=== PATIENT | female | born 1960 | race Caucasian/White ===

== ENCOUNTER → 2016-08-12 | Outpatient (REF) | payer BC | LOC: M LAB REF 16:55 | PROVIDERS: ATTEND Advanced Practice Midwife | DX: Z12.4 Encounter for screening for malignant neoplasm of cervix (principal) ==

== ENCOUNTER → 2016-08-15 | Outpatient (CLI) | payer BC ==
--- NOTE | 2016-08-15 09:21 | REPMRS ---
Patient History The patient states she had a clinical breast exam in July 2016. Patient is postmenopausal. Family history of unknown cancer in father at age 63 and unknown cancer in mother at age 80. Benign excisional biopsy of the left breast. Benign excisional biopsy of the right breast. Digital Mammo Screening Bilat: August 15, 2016 - Exam #: [id number] Bilateral CC and MLO view(s) were taken. Technologist: Christina Aquino, Technologist Prior study comparison: November 05, 2013, digital mammo diagnostic bilateral performed at [facility]. February 12, 2012, digital woman screen mammo, performed at [facility]. January 25, 2011, bilateral bilat screen digital mammo, performed at [facility]. FINDINGS: The breast tissue is heterogeneously dense. This may lower the sensitivity of mammography. There is a moderate amount of heterogeneously dense fibroglandular tissue which is fairly symmetric. There is no interval development of dominant mass, architectural distortion, or clustered microcalcification typical of malignancy. There has been no change in the appearance of the mammogram from the prior studies. ASSESSMENT: BI-RADS/ACR category 1 mammogram. Negative. Recommendation Routine screening mammogram of both breasts in 1 year (for women over age 40). This mammogram was interpreted with the aid of an FDA-approved computer-aided dectection system. Electronically Signed By: Vic Pardo MD 08/15/16 0921
== END ==
LOC: M RAD 08:53
PROVIDERS: ATTEND Advanced Practice Midwife
DX: Z12.31 Encounter for screening mammogram for malignant neoplasm of breast (principal); Z78.0 Asymptomatic menopausal state

== ENCOUNTER → 2018-04-20 | Outpatient (CLI) | payer BC | LOC: M WHC 08:25 | DX: Z12.31 Encounter for screening mammogram for malignant neoplasm of breast (principal); M81.0 Age-related osteoporosis without current pathological fracture; Z78.0 Asymptomatic menopausal state | CPT/HCPCS: 77067 ==

== ENCOUNTER → 2020-05-20 | Outpatient (CLI) | payer BC ==
[~2020-05-20] MED LIST: D32000CA PO; ECOT81TA5 PO; FLUTISP; IBUP200C25 PO; MIRA3350 PO; SYMB80INH; VENTAER
== END ==
LOC: M LABSMTC 09:41
PROVIDERS: ATTEND Anesthesiology
DX: Z01.812 Encounter for preprocedural laboratory examination (principal); Z20.828 Contact with and (suspected) exposure to other viral communicable diseases
CPT/HCPCS: C9803; U0003

== ENCOUNTER 2020-05-25 09:41 | Day surgery (SDC) | payer BC ==
[~2020-05-25] VITALS: Ht 167.6 cm; Wt 56.2 kg
[~2020-05-25 09:41] MED LIST changes: +NS 1,000 ML IV ONE
[2020-05-25] MEDS ORDERED: LIDOCAINE 2% 100MG/5ML SDV (FOR ANES.) As Ordered ONE (11:17)
[2020-05-25] MEDS ORDERED: propofoL 200 MG/20 ML VIAL As Ordered ONE (11:17)
--- NOTE | 2020-05-25 11:40 | ROOR ---
Patient Name: Grace Ferreira Procedure Date: 05/25/2020 11:14 AM Date of : 1960 Age: 59 Room: [facility] Gender: Female Note Status: Finalized Procedure: Colonoscopy Indications: High risk colon cancer surveillance: Personal history of colonic polyps, Family history of advanced adenoma of the colon in a first-degree relative before age 60 years Providers: Pito ROBLES MD Referring MD: MELIDA PICHARDO MD Requesting Provider: Medicines: Monitored Anesthesia Care Complications: No immediate complications. Procedure: Pre-Anesthesia Assessment: - The heart rate, respiratory rate, oxygen saturations, blood pressure, adequacy of pulmonary ventilation, and response to care were monitored throughout the procedure. The Colonoscope was introduced through the anus and advanced to the terminal ileum, with identification of the appendiceal orifice and IC valve. The colonoscopy was performed without difficulty. The patient tolerated the procedure well. The quality of the bowel preparation was good. Findings: The perianal and digital rectal examinations were normal. Two sessile polyps were found in the sigmoid colon and ascending colon. The polyps were diminutive in size. These polyps were removed with a cold snare. Resection and retrieval were complete. Mild sigmoid diverticulosis and small internal hemorrhoids. The colon (entire examined portion) was redundant. The exam was otherwise without abnormality on direct and retroflexion views. Impression: - Two diminutive polyps in the sigmoid colon and in the ascending colon, removed with a cold snare. Resected and retrieved. - Mild sigmoid diverticulosis and small internal hemorrhoids. - The colon examination was otherwise normal on direct and retroflexion views. Recommendation: - Repeat colonoscopy in 5 years for surveillance. Pito Robles MD Pito ROBLES MD 05/25/2020 11:39:25 AM Electronically signed by Pito ROBLES MD Number of Addenda: 0 Note Initiated On: 05/25/2020 11:14 AM Estimated Blood Loss: Estimated blood loss: none.
[2020-05-25 12:18] VITALS: BP 142/66
== END 2020-05-25 12:22 | disposition home or self-care (01) ==
LOC: M OPP 09:41
PROVIDERS: ATTEND Internal Medicine Gastroenterology
DX: Z12.11 Encounter for screening for malignant neoplasm of colon (principal); Z86.010 Personal history of colon polyps; Z83.71 Family history of colonic polyps; Z12.2 Encounter for screening for malignant neoplasm of respiratory organs; Q43.8 Other specified congenital malformations of intestine; K64.8 Other hemorrhoids; F17.201 Nicotine dependence, unspecified, in remission; J45.909 Unspecified asthma, uncomplicated; Z79.82 Long term (current) use of aspirin; Z91.040 Latex allergy status

== ENCOUNTER 2023-01-18 19:02 | Inpatient (IN) | payer BC ==
[~2023-01-18] VITALS: Ht 162.6 cm; Wt 54.0 kg
[~2023-01-18 19:02] MED LIST changes: +FLUT50SP17; -FLUTISP; -NS 1,000 ML IV ONE; -SYMB80INH; +SYMB80INH INH; -VENTAER; +VENTAER INH
[2023-01-18] MEDS ORDERED: KETOROLAC 60MG 2ML VIAL IM ONE (19:20)
[2023-01-18] MEDS ORDERED: HYDROMORPHONE HCL 0.5 MG/ 0.5 ML SYRINGE IV ONE (19:55)
[2023-01-18 20:15] LABS: BASO # 0.1 10^3/uL (0.0-0.2); BASO % 0.7 % (0.0-1.0); EOS # 0.2 10^3/uL (0.0-0.5); EOS % 2.9 % (0.0-3.0); HEMATOCRIT 37.3 % (36.0-47.0); HEMOGLOBIN 12.5 g/dl (12.0-15.5); LYMPH # 1.7 10^3/uL (1.5-5.0); LYMPH % 24.2 % (24.0-44.0); MEAN CORPUSCULAR HEMOGLOBIN 31.3 pg (27.0-33.0); MEAN CORPUSCULAR HGB CONC 33.5 g/dl (32.0-36.5); MEAN CORPUSCULAR VOLUME 93.3 fl (80.0-96.0); MONO # 0.5 10^3/uL (0.0-0.8); MONO % 6.5 % (2.0-8.0); NEUTROPHILS # 4.5 10^3/uL (1.5-8.5); NEUTROPHILS % 65.6 % (36.0-66.0); PLATELET COUNT, AUTOMATED 242 10^3/uL (150-450); WHITE BLOOD COUNT 6.9 10^3/uL (4.0-10.0)
[2023-01-18 20:25] LABS: INR 0.92; PROTHROMBIN TIME 12.6 SECONDS (12.5-14.5)
[2023-01-18 20:26] LABS: PARTIAL THROMBOPLASTIN TIME 27.2 SECONDS (24.8-34.2)
[2023-01-18] MEDS ORDERED: HOME MED LIST COMPLETE! XX SCH (20:40)
[2023-01-18 20:42] LABS: BLOOD UREA NITROGEN 17 MG/DL (9-23); CALCIUM LEVEL 8.9 MG/DL (8.3-10.6); CARBON DIOXIDE LEVEL 21 MMOL/L (20-31); CHLORIDE LEVEL 110 MMOL/L (98-107); CREATININE FOR GFR 0.66 MG/DL (0.55-1.30); GLOMERULAR FILTRATION RATE > 60.0 (>45); GLUCOSE, FASTING 100 MG/DL (74-106); POTASSIUM SERUM 4.3 MMOL/L (3.5-5.1); SODIUM LEVEL 142 MMOL/L (136-145)
[2023-01-18 21:02] LABS: RSV AMPLIFICATION NEGATIVE (NEGATIVE)
[2023-01-18] MEDS ORDERED: SODIUM CHLORIDE NASAL 0.65% SPRAY BTL (OCEAN) PRN (21:40)
[2023-01-18] MEDS ORDERED: HYDROMORPHONE HCL 0.5 MG/ 0.5 ML SYRINGE IV PRN (21:40)
[2023-01-18] MEDS ORDERED: ACETAMINOPHEN TAB 650MG DOSE (2X325MG) PO PRN (21:40)
[2023-01-18] MEDS: HYDROMORPHONE HCL 0.5 MG/ 0.5 ML SYRINGE IV PRN (22:02)
[2023-01-18] MEDS: ONDANSETRON 4MG 2ML VIAL IV PRN (22:02)
[2023-01-18 22:19] VITALS: BP_SYST 133; BP_DIAS 70; BP_DIAS 76; TEMP 98.1; O2SAT 97
[2023-01-18] MEDS: ALBUTEROL 90 MCG/ACT 8GM HFA INHALER INH PRN (22:38)
[2023-01-18] MEDS: LR 1,000 ML IV SCH (23:58)
[2023-01-19] MEDS: HYDROMORPHONE HCL 0.5 MG/ 0.5 ML SYRINGE IV PRN ×4 (01:05→09:55)
[2023-01-19 06:00] VITALS: BP 130/67; TEMP 98.2; O2SAT 95
[2023-01-19] MEDS: ALBUTEROL 90 MCG/ACT 8GM HFA INHALER INH PRN (07:18)
[2023-01-19] MEDS: SYMBICORT 80/4.5MCG INHALER 6GM INH SCH ×2 (07:19→20:00)
[2023-01-19] MEDS: DOCUSATE SODIUM 100MG CAPSULE PO SCH ×2 (09:00→21:00)
[2023-01-19] MEDS: ONDANSETRON 4MG 2ML VIAL IV PRN (09:34)
[2023-01-19] MEDS: LR 1,000 ML IV SCH (11:14)
[2023-01-19] MEDS ORDERED: HYDROMORPHONE HCL 0.5 MG/ 0.5 ML SYRINGE IV ONE (11:15)
[2023-01-19] MEDS ORDERED: KETOROLAC 30 MG/ML 1ML VIAL IV ONE (11:15)
[2023-01-19] MEDS ORDERED: PROMETHAZINE 25MG/ML 1ML VIAL IV ONE (11:30)
[2023-01-19 11:59] LABS: BLOOD UREA NITROGEN 13 MG/DL (9-23); CALCIUM LEVEL 9.1 MG/DL (8.3-10.6); CARBON DIOXIDE LEVEL 26 MMOL/L (20-31); CHLORIDE LEVEL 105 MMOL/L (98-107); CREATININE FOR GFR 0.56 MG/DL (0.55-1.30); GLOMERULAR FILTRATION RATE > 60.0 (>45); GLUCOSE, FASTING 135 MG/DL (74-106); POTASSIUM SERUM 4.2 MMOL/L (3.5-5.1); SODIUM LEVEL 137 MMOL/L (136-145)
[2023-01-19] MEDS ORDERED: PANTOPRAZOLE 40MG VIAL IV ONE (12:00)
[2023-01-19] MEDS: NALOXONE INJ 0.4MG/1ML VIAL IV PRN ×2 (12:20→13:03)
[2023-01-19 14:00] VITALS: BP 117/52; TEMP 97.2; O2SAT 98
[2023-01-19] MEDS ORDERED: LIDOCAINE 2% 100MG/5ML SDV (FOR ANES.) As Ordered ONE (15:57)
[2023-01-19] MEDS ORDERED: ROCURONIUM BROMIDE 50MG/5ML VIAL As Ordered ONE (15:57)
[2023-01-19] MEDS ORDERED: fentaNYL 100 MCG/2 ML INJECTION As Ordered ONE (15:58)
[2023-01-19] MEDS ORDERED: MIDAZOLAM INJ 2MG/2ML VIAL As Ordered ONE ×2 (15:58→21:33)
[2023-01-19] MEDS ORDERED: propofoL 200 MG/20 ML VIAL As Ordered ONE (15:58)
[2023-01-19] MEDS: ceFAZolin 1GM VIAL As Ordered ONE ×2 (16:03→21:07)
[2023-01-19] MEDS ORDERED: ceFAZolin 2 GM/D5W 50 ML IV BAG As Ordered ONE (16:28)
[2023-01-19] MEDS ORDERED: TRANEXAMIC ACID 100 MG/ML 10ML VIAL As Ordered ONE ×2 (16:28→19:12)
[2023-01-19] MEDS ORDERED: ONDANSETRON 4MG 2ML VIAL As Ordered ONE (16:37)
[2023-01-19] MEDS ORDERED: ACETAMINOPHEN 1000MG 100ML IV BAG As Ordered ONE (16:56)
[2023-01-19] MEDS ORDERED: HYDROmorphone HCL 2MG/ML 1ML VIAL As Ordered ONE (16:56)
[2023-01-19] MEDS ORDERED: SENOKOT S TAB PO PRN (17:00)
[2023-01-19] MEDS ORDERED: PERCOCET 5MG/325MG TAB PO PRN ×3 (17:00→21:40)
[2023-01-19] MEDS ORDERED: MORPHINE 10 MG/ML 1ML VIAL IV PRN (17:00)
[2023-01-19] MEDS ORDERED: MOM 30ML SUSPENSION UDC PO PRN (17:00)
[2023-01-19] MEDS ORDERED: LR 1,000 ML IV SCH ×3 (18:00→23:00)
[2023-01-19] MEDS: KETOROLAC 30 MG/ML 1ML VIAL IV SCH (18:00)
[2023-01-19] MEDS ORDERED: LABETALOL 100MG/20ML VIAL As Ordered ONE (18:31)
[2023-01-19] MEDS ORDERED: VANCOMYCIN 500MG/10ML VIAL As Ordered ONE (20:19)
[2023-01-19] MEDS ORDERED: CETIRIZINE (ZyrTEC) 10 MG TAB PO SCH (21:00)
[2023-01-19] MEDS ORDERED: LEVALBUTEROL 1.25MG/3ML NEB SOLN INH ONE (21:30)
[2023-01-19] MEDS ORDERED: MIDAZOLAM INJ 2MG/2ML VIAL IV PRN (21:30)
[2023-01-19] MEDS ORDERED: MEPERIDINE 25 MG/ML 1ML VIAL IV PRN (21:40)
[2023-01-19] MEDS ORDERED: METOCLOPRAMIDE INJ 10MG/2ML VIAL IV PRN (21:40)
[2023-01-19] MEDS ORDERED: ONDANSETRON 4MG 2ML VIAL IV PRN (21:40)
[2023-01-19] MEDS ORDERED: fentaNYL 100 MCG/2 ML INJECTION IV PRN (21:40)
[2023-01-19 22:55] VITALS: BP 123/65; TEMP 98.1; O2SAT 96
[2023-01-19 23:25] VITALS: BP 107/50; TEMP 99.3; O2SAT 96
[2023-01-19 23:55] VITALS: BP 100/48; TEMP 98.8; O2SAT 97
[2023-01-20 00:55] VITALS: BP 137/61; TEMP 98.2; O2SAT 94
[2023-01-20 01:55] VITALS: BP 114/54; TEMP 99.5; O2SAT 96
[2023-01-20] MEDS: ONDANSETRON 4MG 2ML VIAL IV PRN (02:48)
[2023-01-20 02:55] VITALS: BP 134/66; TEMP 99; O2SAT 96
[2023-01-20 03:55] VITALS: BP 105/53; TEMP 99.3; O2SAT 96
[2023-01-20] MEDS: KETOROLAC 30 MG/ML 1ML VIAL IV SCH ×3 (06:08→12:00)
[2023-01-20 08:00] VITALS: BP 100/56; TEMP 98.2; O2SAT 97
[2023-01-20] MEDS: SYMBICORT 80/4.5MCG INHALER 6GM INH SCH (08:00)
[2023-01-20] MEDS ORDERED: ASPIRIN 81MG ENTERIC TABLET PO SCH (09:00)
[2023-01-20] MEDS: DOCUSATE SODIUM 100MG CAPSULE PO SCH (09:41)
[2023-01-20 12:00] VITALS: BP 113/57; TEMP 98.6; O2SAT 96
[2023-01-20] MEDS ORDERED: ASPI81TAEC PO (12:17)
[2023-01-20] MEDS ORDERED: CETI10TA PO (12:17)
[2023-01-20] MEDS ORDERED: SENN-52 PO (12:17)
[2023-01-20] MEDS ORDERED: PERC5TAB12 PO (12:17)
== END 2023-01-20 16:13 | disposition home or self-care (01) | DRG 313 ==
LOC: M ED 19:02 → M ED INP 21:36 → M MSPAV 22:19
PROVIDERS: ADMIT Internal Medicine; ATTEND General Practice
PROC: BQ1DZZZ Fluoroscopy of Right Lower Leg (ICD-10-PCS; principal; 2023-01-19 08:30)
PROC: 0QSG06Z Reposition Right Tibia with Intramedullary Internal Fixation Device, Open Approach (ICD-10-PCS; 2023-01-20)
PROC: 0QSJ06Z Reposition Right Fibula with Intramedullary Internal Fixation Device, Open Approach (ICD-10-PCS; 2023-01-20)
DX: S82.301A Unspecified fracture of lower end of right tibia, initial encounter for closed fracture (principal); G92.9 Unspecified toxic encephalopathy; S82.461A Displaced segmental fracture of shaft of right fibula, initial encounter for closed fracture; J45.909 Unspecified asthma, uncomplicated; M81.0 Age-related osteoporosis without current pathological fracture; T40.2X5A Adverse effect of other opioids, initial encounter; R10.13 Epigastric pain; J44.9 Chronic obstructive pulmonary disease, unspecified; Z87.891 Personal history of nicotine dependence; Z79.899 Other long term (current) drug therapy; Z91.010 Allergy to peanuts; Z91.040 Latex allergy status; W01.0XXA Fall on same level from slipping, tripping and stumbling without subsequent striking against object, initial encounter; Y92.9 Unspecified place or not applicable

== ENCOUNTER → 2023-02-05 | Outpatient (CLI) | payer BC ==
[~2023-02-05] MED LIST changes: +ASPI81TAEC PO; +CETI10TA PO; +PERC5TAB12 PO; +SENN-52 PO
== END ==
LOC: M SOG 09:21
PROVIDERS: ATTEND Orthopaedic Surgery
DX: M79.604 Pain in right leg (principal)

== ENCOUNTER → 2023-03-05 | Outpatient (CLI) | payer BC | LOC: M SOG 09:39 | PROVIDERS: ATTEND Orthopaedic Surgery | DX: S82.251D Displaced comminuted fracture of shaft of right tibia, subsequent encounter for closed fracture with routine healing (principal); Y93.9 Activity, unspecified; Y92.9 Unspecified place or not applicable ==

== ENCOUNTER → 2023-04-11 | Outpatient (CLI) | payer BC | LOC: M SOG 07:53 | PROVIDERS: ATTEND Orthopaedic Surgery | DX: S82.251D Displaced comminuted fracture of shaft of right tibia, subsequent encounter for closed fracture with routine healing (principal); M19.071 Primary osteoarthritis, right ankle and foot; Y93.9 Activity, unspecified; Y92.9 Unspecified place or not applicable ==

== ENCOUNTER → 2023-06-04 | Outpatient (CLI) | payer BC | LOC: M SOG 07:50 | PROVIDERS: ATTEND Orthopaedic Surgery | DX: S82.251D Displaced comminuted fracture of shaft of right tibia, subsequent encounter for closed fracture with routine healing (principal); S82.831D Other fracture of upper and lower end of right fibula, subsequent encounter for closed fracture with routine healing ==

== ENCOUNTER → 2023-06-27 | Outpatient (CLI) | payer BC | LOC: M SOG 07:58 | PROVIDERS: ATTEND Physician Assistant | DX: M79.604 Pain in right leg (principal) ==